=== PATIENT | male | born 1990 | race Caucasian/White ===

== ENCOUNTER 2018-02-18 10:22 | Emergency (ER) | payer OTHER ==
[~2018-02-18] VITALS: Ht 185.4 cm; Wt 79.4 kg
[~2018-02-18 10:22] MED LIST: BENADRYL25 MG PO; LOPE2C PO; METPRE4DP PO; PROM25 PO; Prednisone20 MG PO
[2018-02-18] MEDS ORDERED: Prednisone20 MG PO (10:40)
== END 2018-02-18 10:51 | disposition home or self-care (01) ==
LOC: ER 10:22
DX: L23.7 Allergic contact dermatitis due to plants, except food (principal)
CPT/HCPCS: 99282

== ENCOUNTER 2019-08-25 18:05 | Emergency (ER) | payer OTHER ==
[~2019-08-25] VITALS: Ht 188 cm; Wt 83.9 kg
[2019-08-25] MEDS ORDERED: CEPH500 PO (21:13)
[2019-08-25] MEDS ORDERED: Percocet 7.5-31 EACH PO (21:13)
[2019-08-25] MEDS ORDERED: CRUTCH2 XX (23:35)
== END 2019-08-26 00:10 | disposition home or self-care (01) ==
LOC: ER 18:05
DX: S91.111A Laceration without foreign body of right great toe without damage to nail, initial encounter (principal); T25.222A Burn of second degree of left foot, initial encounter; T25.221A Burn of second degree of right foot, initial encounter; T31.0 Burns involving less than 10% of body surface; X10.2XXA Contact with fats and cooking oils, initial encounter
CPT/HCPCS: 12002; 16020; 36415; 90471; 90714; 96361-59; 96374-59; 96375-59; 99284-25; A9270; A9270-GY; J1170; J2405; J7030